=== PATIENT | female | born 1985 | race Caucasian/White ===

== ENCOUNTER 2017-11-27 20:38 | Emergency (ER) | payer BC ==
[~2017-11-27] VITALS: Ht 165.1 cm; Wt 127.0 kg
[2017-11-27] MEDS ORDERED: BIRTH CONTROL PILL (20:52)
[2017-11-27 21:31] LABS: ABSOLUTE BASOPHILS 0.1 thou/uL (0.0-0.2); ABSOLUTE EOSINOPHILS 0.1 thou/uL (0.0-0.7); ABSOLUTE LYMPHOCYTES 3.1 thou/uL (0.8-5.3); ABSOLUTE MONOCYTES 1.2 thou/uL (0.0-1.2); ABSOLUTE NEUTROPHILS 8.3 thou/uL (1.6-8.1); BASOPHILS 0.6 %; EOSINOPHILS 0.9 %; HEMATOCRIT 47.8 % (37.0-47.0); LYMPHOCYTES 24.5 %; MCH 30.8 pg (26.0-34.0); MCHC 33.5 g/dL (28.0-37.0); MCV 91.7 fL (80.0-100.0); MONOCYTES 9.3 %; MPV 8.4 fl. (7.2-11.1); NUCLEATED RBCS 0 /100WBC; PLATELET COUNT* 246 thou/uL (150-400); POLYS 64.7 %; RBC 5.22 mil/uL (4.20-5.00); RDW-CV 13.8 % (10.5-14.5); WBC 12.9 thou/uL (4.0-11.0)
[2017-11-27 21:39] LABS: ANION GAP 8 mmol/L (7-16); BUN 18 mg/dL (7-18); CALCIUM 9.1 mg/dL (8.5-10.1); CHLORIDE 105 mmol/L (98-107); CO2 29 mmol/L (21-32); CREATININE 0.9 mg/dL (0.6-1.3); GLUCOSE 110 mg/dL (70-99); POTASSIUM 3.4 mmol/L (3.5-5.1); SODIUM 142 mmol/L (136-145)
[2017-11-27 21:55] LABS: ALBUMIN 3.5 g/dL (3.4-5.0); ALKALINE PHOSPHATASE 97 U/L (46-116); NT-PRO BRAIN NAT PEPTIDE 17 pg/mL (<300); SGOT 28 U/L (15-37); SGPT 67 U/L (30-65); TOTAL BILIRUBIN 0.4 mg/dL (<0.1-1.0); TOTAL PROTEIN 7.5 g/dL (6.4-8.2); TROPONIN-I LEVEL <0.06 ng/mL (<0.06)
[2017-11-27] MEDS ORDERED: VENTOLIN HFA 1818 GM INH (23:26)
[2017-11-27] MEDS ORDERED: NORCO 5-325 TA1 EACH PO (23:26)
[2017-11-27] MEDS ORDERED: TESSALON PERLE100 MG PO (23:26)
[2017-11-27 23:42] VITALS: BP 145/90
== END 2017-11-27 23:42 | disposition home or self-care (01) ==
LOC: M.ERS 20:38
PROVIDERS: Physician Assistant
DX: R05 Cough (principal); R09.1 Pleurisy